=== PATIENT | male | born 1955 | race Caucasian/White ===

== ENCOUNTER 2021-03-03 11:44 | Observation (INO) ==
[2021-03-03] MEDS ORDERED: Naloxone 0.4 MG/ML INJ IVP PRN (17:46)
[2021-03-03] MEDS ORDERED: 0.9 % Sodium Chloride 1,000 ML IVC SCH (18:00)
[2021-03-03] MEDS: *HR* HYDROcodone/Acet 5/325 mg TABLET PO PRN (21:56)
[2021-03-03] MEDS ORDERED: Acetaminophen 325 MG TABLET PO PRN (22:22)
[2021-03-04 02:50] LABS: Basophils # 0.1 K/mcL (0.0-0.2); Basophils % 0.4 %; Eosinophils % 0.3 %; Hematocrit 27.4 % (37.5-50.1); Immature Granulocytes % 0.3 % (0-4); Lymphocytes # 2.2 K/mcL (0.6-4.6); Lymphocytes % 19.4 %; Mean Corpuscular HGB Conc 29.2 g/dL (31.6-35.5); Mean Corpuscular Hemoglobin 25.3 pg (28.0-33.3); Mean Corpuscular Volume 86.7 fL (83.0-100.0); Mean Platelet Volume 10.4 fL (9.4-12.4); Monocytes % 8.9 %; Neutrophils # 8.1 K/mcL (1.6-8.9); Nucleated Red Blood Cells 0.2 /100 WBC (0); Platelet Count 637 K/mcL (140-400); Red Blood Count 3.16 M/mcL (4.19-5.50); Red Cell Distribution Width 16.8 % (11.5-14.5); Segmented Neutrophils % 70.7 %; White Blood Count 11.5 K/mcL (4.3-11.1)
[2021-03-04 03:05] LABS: Calcium 8.3 mg/dL (8.6-10.3); Potassium 4.2 mEq/L (3.5-5.1)
[2021-03-04] MEDS: *HR* HYDROcodone/Acet 5/325 mg TABLET PO PRN ×2 (05:32→12:00)
[2021-03-04] MEDS ORDERED: *HR* Heparin 5,000 UNIT/ML VIAL SQ SCH (06:00)
[2021-03-04] MEDS ORDERED: Isovue-300 50ML VIAL ONE (12:49)
[2021-03-04] MEDS ORDERED: Lidocaine -MPF 2% 5 ML VIAL ONE (12:52)
[2021-03-04] MEDS ORDERED: *HR* Midazolam HCl 2 MG/2 ML VIAL ONE (12:52)
[2021-03-04] MEDS ORDERED: *HR* Propofol 200 MG/20 ML VIAL IVP ONE (12:52)
[2021-03-04] MEDS ORDERED: Ondansetron 4 MG/2 ML VIAL ONE (12:52)
[2021-03-04] MEDS ORDERED: *HR* FentaNYL (PF) 100 MCG/2 ML VIAL ONE (12:52)
[2021-03-04] MEDS ORDERED: *HR* HYDROcodone/Acet 5/325 mg TABLET PO PRN (15:12)
[2021-03-04] MEDS ORDERED: Naloxone 0.4 MG/ML INJ IVP PRN (15:12)
[2021-03-04] MEDS ORDERED: Acetaminophen 325 MG TABLET PO PRN (15:12)
[2021-03-04] MEDS: *HR* Heparin 5,000 UNIT/ML VIAL SQ SCH (16:49)
[2021-03-05 02:41] LABS: Basophils % 0.1 %; Hematocrit 27.9 % (37.5-50.1); Hemoglobin 8.2 g/dL (12.9-16.9); Immature Granulocytes % 0.3 % (0-4); Lymphocytes % 14.9 %; Mean Corpuscular HGB Conc 29.4 g/dL (31.6-35.5); Mean Corpuscular Hemoglobin 25.4 pg (28.0-33.3); Mean Corpuscular Volume 86.4 fL (83.0-100.0); Mean Platelet Volume 11.2 fL (9.4-12.4); Monocytes # 0.4 K/mcL (0.0-1.3); Neutrophils # 5.5 K/mcL (1.6-8.9); Platelet Count 617 K/mcL (140-400); Red Blood Count 3.23 M/mcL (4.19-5.50); Red Cell Distribution Width 17.2 % (11.5-14.5); Segmented Neutrophils % 78.7 %
[2021-03-05 02:56] LABS: Calcium 8.6 mg/dL (8.6-10.3); Potassium 4.4 mEq/L (3.5-5.1)
[2021-03-05 03:13] VITALS: O2SAT 98
[2021-03-05] MEDS: *HR* Heparin 5,000 UNIT/ML VIAL SQ SCH (05:04)
[2021-03-05 07:42] VITALS: BP 161/72; TEMP 97.8
[2021-03-05 08:01] VITALS: PULSE 64
[2021-03-07 23:08] LABS: Calculi Mass 42 mg
== END 2021-03-05 13:40 | disposition home or self-care (01) ==
LOC: 3BNU
PROVIDERS: ADMIT Internal Medicine; ATTEND Internal Medicine

== ENCOUNTER 2021-07-09 02:26 | Observation (INO) ==
[2021-07-09] MEDS ORDERED: Naloxone 0.4 MG/ML INJ IVP PRN (04:28)
[2021-07-09] MEDS ORDERED: Acetaminophen 325 MG TABLET PO PRN (04:28)
[2021-07-09] MEDS ORDERED: Ondansetron 4 MG/2 ML VIAL IVP PRN (04:28)
[2021-07-09] MEDS: 0.9 % Sodium Chloride 1,000 ML IVC SCH ×2 (05:04→15:14)
[2021-07-09 05:56] LABS: Bilirubin,Urine Negative (Negative); Blood,Urine Negative (Negative); Clarity,Urine Clear (Clear); Color,Urine Light-Yellow (Yellow); Glucose,Urine (UA) Normal (Normal); Ketones,Urine Negative (Negative); Leukocyte Esterase,Urine Negative (Negative); Nitrite,Urine Negative (Negative); PH,Urine 6.5 pH Units (5.0-8.0); Protein,Urine 30 mg/dL (Neg-Trace); RBC,Urine 0-3 per hpf (0-3); Specific Gravity,Urine 1.027 (1.010-1.025); Urobilinogen,Urine Normal (Normal); WBC,Urine 0-3 per hpf (0-3)
[2021-07-09 07:05] LABS: Basophils # 0.1 K/mcL (0.0-0.2); Basophils % 0.5 %; Eosinophils # 0.1 K/mcL (0.0-0.6); Eosinophils % 0.5 %; Hematocrit 28.5 % (37.5-50.1); Hemoglobin 8.3 g/dL (12.9-16.9); Immature Granulocytes % 0.3 % (0-4); Lymphocytes # 2.8 K/mcL (0.6-4.6); Lymphocytes % 19.2 %; Mean Corpuscular HGB Conc 29.1 g/dL (31.6-35.5); Mean Corpuscular Hemoglobin 24.1 pg (28.0-33.3); Mean Corpuscular Volume 82.8 fL (83.0-100.0); Monocytes # 1.2 K/mcL (0.0-1.3); Monocytes % 8.4 %; Neutrophils # 10.5 K/mcL (1.6-8.9); Platelet Count 371 K/mcL (140-400); Red Blood Count 3.44 M/mcL (4.19-5.50); Red Cell Distribution Width 16.6 % (11.5-14.5); Segmented Neutrophils % 71.1 %; White Blood Count 14.8 K/mcL (4.3-11.1)
[2021-07-09 07:09] LABS: INR 1.2; Prothrombin Time 13.8 Seconds (9.4-12.1)
[2021-07-09 07:58] LABS: Alanine Aminotransferase 26 Units/L (7-52); Albumin 4.1 g/dL (3.5-5.7); Albumin/Globulin Ratio 1.1 (1.1-2.2); Alkaline Phosphatase 80 Units/L (34-104); Aspartate Amino Transferase 26 Units/L (13-39); BUN/Creatinine Ratio 12 (6-26); Bilirubin,Indirect 0.3 mg/dL (0.0-1.0); Bilirubin,Total 0.3 mg/dL (0.3-1.0); Blood Urea Nitrogen 33 mg/dL (8-23); Calcium 9.3 mg/dL (8.6-10.3); Carbon Dioxide 16 mEq/L (23-29); Chloride 110 mEq/L (98-107); Ferritin 18 ng/mL (20-250); Globulin 3.8 g/dL (2.4-3.5); Glucose 94 mg/dL (70-105); Iron < 10 mcg/dL (65-175); Magnesium 1.9 mg/dL (1.6-2.6); Osmolality,Calculated 291 (280-300); Potassium 4.2 mEq/L (3.5-5.1); Sodium 137 mEq/L (136-145); Thyroid Stimulating Hormone 2.416 mcIU/mL (0.340-5.600); Total Protein 7.9 g/dL (6.4-8.9); Transferrin 379 mg/dL (203-362); eGFR For African Americans 27 (> 60); eGFR For Non-African Americans 22 (> 60)
[2021-07-09] MEDS ORDERED: amLODIPine 5 MG TABLET PO SCH (10:45)
[2021-07-09] MEDS: Cyanocobalamin (B-12) 1,000 MCG TABLET PO SCH (20:02)
[2021-07-09] MEDS: *HR* OxyCODONE Immed Rel 5 MG TABLET PO PRN (21:45)
[2021-07-10] MEDS ORDERED: *HR* Metoprolol 5 MG/5 ML VIAL IVP ONE (00:22)
[2021-07-10 01:36] LABS: Basophils % 0.2 %; Eosinophils % 0.1 %; Hematocrit 24.5 % (37.5-50.1); Hemoglobin 7.1 g/dL (12.9-16.9); Immature Granulocytes % 0.3 % (0-4); Lymphocytes # 1.1 K/mcL (0.6-4.6); Lymphocytes % 7.8 %; Mean Corpuscular Hemoglobin 23.6 pg (28.0-33.3); Mean Corpuscular Volume 81.4 fL (83.0-100.0); Mean Platelet Volume 10.5 fL (9.4-12.4); Monocytes # 0.9 K/mcL (0.0-1.3); Monocytes % 6.1 %; Neutrophils # 12.3 K/mcL (1.6-8.9); Platelet Count 424 K/mcL (140-400); Red Blood Count 3.01 M/mcL (4.19-5.50); Red Cell Distribution Width 16.8 % (11.5-14.5); Segmented Neutrophils % 85.5 %; White Blood Count 14.4 K/mcL (4.3-11.1)
[2021-07-10 02:04] LABS: Calcium 8.5 mg/dL (8.6-10.3); Potassium 4.3 mEq/L (3.5-5.1)
[2021-07-10] MEDS: amLODIPine 5 MG TABLET PO SCH (09:26)
[2021-07-10] MEDS: Cyanocobalamin (B-12) 1,000 MCG TABLET PO SCH ×2 (09:26→20:46)
[2021-07-10] MEDS: *HR* OxyCODONE Immed Rel 5 MG TABLET PO PRN (10:00)
[2021-07-10] MEDS ORDERED: Iron Sucrose Complex 400 MG in 0.9 % Sodium Chloride 250 ML IVPB ONE (11:35)
[2021-07-10 17:55] LABS: Hematocrit 24.3 % (37.5-50.1); Hemoglobin 7.1 g/dL (12.9-16.9)
[2021-07-11] MEDS: *HR* OxyCODONE Immed Rel 5 MG TABLET PO PRN (03:43)
[2021-07-11 07:02] VITALS: BP 142/76; PULSE 91; TEMP 99; O2SAT 95
[2021-07-11 08:31] LABS: Basophils % 0.2 %; Eosinophils # 0.1 K/mcL (0.0-0.6); Eosinophils % 0.6 %; Hematocrit 26.5 % (37.5-50.1); Hemoglobin 7.7 g/dL (12.9-16.9); Immature Granulocytes % 0.6 % (0-4); Lymphocytes # 1.6 K/mcL (0.6-4.6); Lymphocytes % 11.3 %; Mean Corpuscular HGB Conc 29.1 g/dL (31.6-35.5); Mean Corpuscular Hemoglobin 23.8 pg (28.0-33.3); Mean Corpuscular Volume 81.8 fL (83.0-100.0); Mean Platelet Volume 10.5 fL (9.4-12.4); Monocytes % 7.1 %; Neutrophils # 11.1 K/mcL (1.6-8.9); Nucleated Red Blood Cells 0.1 /100 WBC (0); Platelet Count 434 K/mcL (140-400); Red Blood Count 3.24 M/mcL (4.19-5.50); Red Cell Distribution Width 16.9 % (11.5-14.5); Segmented Neutrophils % 80.2 %; White Blood Count 13.9 K/mcL (4.3-11.1)
[2021-07-11 08:49] LABS: Magnesium 1.7 mg/dL (1.6-2.6); Potassium 4.2 mEq/L (3.5-5.1)
[2021-07-11] MEDS: Cyanocobalamin (B-12) 1,000 MCG TABLET PO SCH (09:17)
[2021-07-11] MEDS: amLODIPine 5 MG TABLET PO SCH (09:18)
== END 2021-07-11 13:30 | disposition home or self-care (01) ==
LOC: 2ANU → SUATTDRO 04:16 → 2ANU 07-11 08:39
PROVIDERS: ADMIT Internal Medicine; ATTEND Family Medicine

== ENCOUNTER 2021-07-18 10:09 | Observation (INO) ==
[2021-07-18] MEDS ORDERED: 0.9 % Sodium Chloride 1,000 ML IVC ONE (13:57)
[2021-07-18 14:41] LABS: Bilirubin,Urine Negative (Negative); Blood,Urine Negative (Negative); Clarity,Urine Clear (Clear); Color,Urine Light-Yellow (Yellow); Glucose,Urine (UA) Normal (Normal); Ketones,Urine Negative (Negative); Leukocyte Esterase,Urine Negative (Negative); Nitrite,Urine Negative (Negative); PH,Urine 6.5 pH Units (5.0-8.0); Protein,Urine 30 mg/dL (Neg-Trace); RBC,Urine 0-3 per hpf (0-3); Specific Gravity,Urine 1.022 (1.010-1.025); Squamous Epithelial Cell,Urine Few per hpf (None-Few); Urobilinogen,Urine Normal (Normal); WBC,Urine 0-3 per hpf (0-3)
[2021-07-18 14:42] LABS: Hematocrit 26.7 % (37.5-50.1); Hemoglobin 7.8 g/dL (12.9-16.9); Mean Corpuscular HGB Conc 29.2 g/dL (31.6-35.5); Mean Corpuscular Hemoglobin 23.9 pg (28.0-33.3); Mean Corpuscular Volume 81.9 fL (83.0-100.0); Mean Platelet Volume 10.7 fL (9.4-12.4); Nucleated Red Blood Cells 0.2 /100 WBC (0); Platelet Count 1222 K/mcL (140-400); Red Blood Count 3.26 M/mcL (4.19-5.50); Red Cell Distribution Width 17.9 % (11.5-14.5); White Blood Count 12.3 K/mcL (4.3-11.1)
[2021-07-18 15:04] LABS: Alanine Aminotransferase 28 Units/L (7-52); Albumin 3.9 g/dL (3.5-5.7); Alkaline Phosphatase 151 Units/L (34-104); Aspartate Amino Transferase 21 Units/L (13-39); BUN/Creatinine Ratio 16 (6-26); Bilirubin,Indirect 0.2 mg/dL (0.0-1.0); Bilirubin,Total 0.2 mg/dL (0.3-1.0); Blood Urea Nitrogen 44 mg/dL (8-23); Calcium 9.3 mg/dL (8.6-10.3); Carbon Dioxide 18 mEq/L (23-29); Chloride 113 mEq/L (98-107); Globulin 4.1 g/dL (2.4-3.5); Glucose 105 mg/dL (70-105); Magnesium 2.3 mg/dL (1.6-2.6); Osmolality,Calculated 310 (280-300); Potassium 4.6 mEq/L (3.5-5.1); Sodium 144 mEq/L (136-145); eGFR For African Americans 29 (> 60); eGFR For Non-African Americans 24 (> 60)
[2021-07-18 15:24] LABS: Monocytes # 0.7 K/mcL (0.0-1.3); Neutrophils # 10.6 K/mcL (1.6-8.9); Platelet Estimate Marked Increase (Normal)
[2021-07-18 15:25] LABS: Acanthocytes 1+ (Not Present); Anisocytosis 1+ (Not Present); Polychromasia 1+ (Not Present); Target Cells 1+ (Not Present)
[2021-07-18] MEDS ORDERED: Naloxone 0.4 MG/ML INJ IVP PRN (17:35)
[2021-07-18] MEDS ORDERED: Ondansetron 4 MG/2 ML VIAL IVP PRN (17:35)
[2021-07-18] MEDS ORDERED: Melatonin 3 MG TABLET PO PRN (17:35)
[2021-07-18 20:07] LABS: Ferritin 260 ng/mL (20-250); Iron < 10 mcg/dL (65-175); Transferrin 265 mg/dL (203-362)
[2021-07-18] MEDS: Cyanocobalamin (B-12) 1,000 MCG TABLET PO SCH (21:22)
[2021-07-18] MEDS: 0.9 % Sodium Chloride 1,000 ML IVC SCH (21:34)
[2021-07-19] MEDS: Acetaminophen 325 MG TABLET PO PRN ×2 (01:39→12:28)
[2021-07-19 02:01] LABS: Protein/Creatinine Ratio,Urine 0.53 mg/mg (0.00-0.20); Sodium, Urine 135.7 mEq/L
[2021-07-19] MEDS: 0.9 % Sodium Chloride 1,000 ML IVC SCH (05:57)
[2021-07-19 06:36] LABS: Basophils % 0.3 %; Eosinophils # 0.2 K/mcL (0.0-0.6); Eosinophils % 1.4 %; Hematocrit 22.9 % (37.5-50.1); Hemoglobin 6.7 g/dL (12.9-16.9); Immature Granulocytes % 0.3 % (0-4); Lymphocytes # 1.9 K/mcL (0.6-4.6); Lymphocytes % 16.3 %; Mean Corpuscular HGB Conc 29.3 g/dL (31.6-35.5); Mean Corpuscular Hemoglobin 23.7 pg (28.0-33.3); Mean Corpuscular Volume 80.9 fL (83.0-100.0); Mean Platelet Volume 10.5 fL (9.4-12.4); Monocytes % 8.8 %; Neutrophils # 8.4 K/mcL (1.6-8.9); Nucleated Red Blood Cells 0.3 /100 WBC (0); Platelet Count 1188 K/mcL (140-400); Red Blood Count 2.83 M/mcL (4.19-5.50); Segmented Neutrophils % 72.9 %; White Blood Count 11.5 K/mcL (4.3-11.1)
[2021-07-19 06:57] LABS: Calcium 8.9 mg/dL (8.6-10.3); Phosphorous 3.3 mg/dL (2.7-4.5); Potassium 4.8 mEq/L (3.5-5.1)
[2021-07-19] MEDS ORDERED: 0.9 % Sodium Chloride 250 ML IVC SCH (07:45)
[2021-07-19] MEDS: Cyanocobalamin (B-12) 1,000 MCG TABLET PO SCH ×2 (08:25→21:17)
[2021-07-19] MEDS: amLODIPine 5 MG TABLET PO SCH (08:25)
[2021-07-19] MEDS ORDERED: Iron Sucrose Complex 200 MG in 0.9 % Sodium Chloride 100 ML IVPB ONE (13:12)
[2021-07-19 18:23] LABS: Basophils % 0.4 %; Eosinophils # 0.2 K/mcL (0.0-0.6); Eosinophils % 1.4 %; Hematocrit 26.1 % (37.5-50.1); Hemoglobin 7.9 g/dL (12.9-16.9); Immature Granulocytes % 0.5 % (0-4); Lymphocytes # 1.7 K/mcL (0.6-4.6); Lymphocytes % 15.7 %; Mean Corpuscular HGB Conc 30.3 g/dL (31.6-35.5); Mean Corpuscular Volume 82.6 fL (83.0-100.0); Mean Platelet Volume 10.7 fL (9.4-12.4); Monocytes # 0.7 K/mcL (0.0-1.3); Monocytes % 6.5 %; Neutrophils # 8.4 K/mcL (1.6-8.9); Platelet Count 1021 K/mcL (140-400); Red Blood Count 3.16 M/mcL (4.19-5.50); Red Cell Distribution Width 17.6 % (11.5-14.5); Segmented Neutrophils % 75.5 %; White Blood Count 11.1 K/mcL (4.3-11.1)
[2021-07-20 01:01] LABS: Basophils % 0.3 %; Eosinophils # 0.2 K/mcL (0.0-0.6); Eosinophils % 1.3 %; Hematocrit 24.8 % (37.5-50.1); Hemoglobin 7.6 g/dL (12.9-16.9); Immature Granulocytes % 0.5 % (0-4); Lymphocytes # 1.7 K/mcL (0.6-4.6); Lymphocytes % 14.2 %; Mean Corpuscular HGB Conc 30.6 g/dL (31.6-35.5); Mean Corpuscular Hemoglobin 24.9 pg (28.0-33.3); Mean Corpuscular Volume 81.3 fL (83.0-100.0); Mean Platelet Volume 10.1 fL (9.4-12.4); Monocytes # 0.9 K/mcL (0.0-1.3); Monocytes % 7.2 %; Nucleated Red Blood Cells 0.2 /100 WBC (0); Platelet Count 1091 K/mcL (140-400); Red Blood Count 3.05 M/mcL (4.19-5.50); Red Cell Distribution Width 17.5 % (11.5-14.5); Segmented Neutrophils % 76.5 %; White Blood Count 11.8 K/mcL (4.3-11.1)
[2021-07-20 01:19] LABS: Calcium 8.4 mg/dL (8.6-10.3)
[2021-07-20] MEDS: amLODIPine 5 MG TABLET PO SCH (08:10)
[2021-07-20] MEDS: Cyanocobalamin (B-12) 1,000 MCG TABLET PO SCH ×2 (08:10→20:37)
[2021-07-20] MEDS: Acetaminophen 325 MG TABLET PO PRN ×2 (08:10→20:36)
[2021-07-21 02:00] LABS: Basophils # 0.1 K/mcL (0.0-0.2); Basophils % 0.4 %; Eosinophils # 0.3 K/mcL (0.0-0.6); Eosinophils % 2.3 %; Hemoglobin 7.7 g/dL (12.9-16.9); Immature Granulocytes % 0.9 % (0-4); Lymphocytes # 1.8 K/mcL (0.6-4.6); Lymphocytes % 15.1 %; Mean Corpuscular HGB Conc 29.6 g/dL (31.6-35.5); Mean Corpuscular Hemoglobin 24.2 pg (28.0-33.3); Mean Corpuscular Volume 81.8 fL (83.0-100.0); Mean Platelet Volume 10.1 fL (9.4-12.4); Monocytes % 8.2 %; Neutrophils # 8.8 K/mcL (1.6-8.9); Nucleated Red Blood Cells 0.2 /100 WBC (0); Platelet Count 1108 K/mcL (140-400); Red Blood Count 3.18 M/mcL (4.19-5.50); Red Cell Distribution Width 17.7 % (11.5-14.5); Segmented Neutrophils % 73.1 %
[2021-07-21 02:19] LABS: Calcium 8.9 mg/dL (8.6-10.3); Potassium 4.6 mEq/L (3.5-5.1)
[2021-07-21 02:43] LABS: Burr Cells 1+ (Not Present); Hypersegmented Neutrophils Present (Not Present); Hypochromasia Present (Not Present); Platelet Estimate Marked Increase (Normal); Target Cells 1+ (Not Present)
[2021-07-21] MEDS: amLODIPine 5 MG TABLET PO SCH (09:07)
[2021-07-21] MEDS: Cyanocobalamin (B-12) 1,000 MCG TABLET PO SCH ×2 (09:07→22:07)
[2021-07-21] MEDS ORDERED: 0.9 % Sodium Chloride 500 ML ONE (11:50)
[2021-07-21] MEDS ORDERED: *HR* FentaNYL (PF) 100 MCG/2 ML VIAL IVP ONE (11:53)
[2021-07-21] MEDS ORDERED: *HR* Midazolam HCl 2 MG/2 ML VIAL IVP ONE (11:53)
[2021-07-21] MEDS: Acetaminophen 325 MG TABLET PO PRN (16:39)
[2021-07-21 16:56] LABS: Adenovirus F 40/41 PCR Not detected (Not detect); Astrovirus PCR Not detected (Not detect); C.difficile Toxin A/B Gene PCR Not detected (Not detect); Campylobacter by PCR Not detected (Not detect); Cryptosporidium by PCR Not detected (Not detect); Cyclospora cayetanensis PCR Not detected (Not detect); Entamoeba histolytica PCR Not detected (Not detect); Enteroaggregative E.coli(EAEC) Not detected (Not detect); Enteropathogenic E.coli(EPEC) Not detected (Not detect); Enterotoxigenic E.coli (ETEC) Not detected (Not detect); Giardia lamblia PCR Not detected (Not detect); Norovirus GI/GII PCR DETECTED (Not detect); Plesiomonas shigelloides PCR Not detected (Not detect); Rotavirus A PCR Not detected (Not detect); Salmonella PCR Not detected (Not detect); Sapovirus PCR Not detected (Not detect); Shig/EnteroinvasiveE coli EIEC Not detected (Not detect); Shigalike tox-prod E coli STEC Not detected (Not detect); Vibrio PCR Not detected (Not detect); Vibrio cholerae PCR Not detected (Not detect); Yersinia enterocolitica PCR Not detected (Not detect)
[2021-07-21] MEDS ORDERED: SODIUM CHLORIDE/NAHCO3/KCL/PEG 4,000 ML SOLN.RECON PO ONE (17:00)
[2021-07-22 07:01] LABS: Basophils # 0.1 K/mcL (0.0-0.2); Basophils % 0.5 %; Eosinophils # 0.3 K/mcL (0.0-0.6); Eosinophils % 2.5 %; Hematocrit 27.7 % (37.5-50.1); Hemoglobin 8.3 g/dL (12.9-16.9); Immature Granulocytes % 0.9 % (0-4); Lymphocytes # 1.7 K/mcL (0.6-4.6); Lymphocytes % 16.7 %; Mean Corpuscular Hemoglobin 24.9 pg (28.0-33.3); Mean Corpuscular Volume 83.2 fL (83.0-100.0); Mean Platelet Volume 9.9 fL (9.4-12.4); Monocytes # 1.1 K/mcL (0.0-1.3); Monocytes % 10.5 %; Neutrophils # 7.1 K/mcL (1.6-8.9); Nucleated Red Blood Cells 0.2 /100 WBC (0); Platelet Count 1165 K/mcL (140-400); Red Blood Count 3.33 M/mcL (4.19-5.50); Red Cell Distribution Width 18.5 % (11.5-14.5); Segmented Neutrophils % 68.9 %; White Blood Count 10.3 K/mcL (4.3-11.1)
[2021-07-22 07:22] LABS: Calcium 9.2 mg/dL (8.6-10.3); Potassium 4.5 mEq/L (3.5-5.1)
[2021-07-22] MEDS: amLODIPine 5 MG TABLET PO SCH (07:34)
[2021-07-22] MEDS: Cyanocobalamin (B-12) 1,000 MCG TABLET PO SCH ×2 (07:34→20:42)
[2021-07-23 07:31] LABS: Calcium 9.7 mg/dL (8.6-10.3); Potassium 4.7 mEq/L (3.5-5.1)
[2021-07-23] MEDS ORDERED: 0.9 % Sodium Chloride 1,000 ML IVC SCH (08:45)
[2021-07-23] MEDS: Acetaminophen 325 MG TABLET PO PRN (08:52)
[2021-07-23] MEDS: amLODIPine 5 MG TABLET PO SCH (08:52)
[2021-07-23] MEDS: Cyanocobalamin (B-12) 1,000 MCG TABLET PO SCH (08:53)
[2021-07-23 09:27] LABS: Basophils # 0.1 K/mcL (0.0-0.2); Basophils % 0.4 %; Eosinophils # 0.2 K/mcL (0.0-0.6); Eosinophils % 1.3 %; Hematocrit 27.1 % (37.5-50.1); Hemoglobin 8.1 g/dL (12.9-16.9); Immature Granulocytes % 0.6 % (0-4); Lymphocytes % 13.7 %; Mean Corpuscular HGB Conc 29.9 g/dL (31.6-35.5); Mean Corpuscular Hemoglobin 24.8 pg (28.0-33.3); Mean Corpuscular Volume 82.9 fL (83.0-100.0); Mean Platelet Volume 9.8 fL (9.4-12.4); Monocytes # 1.3 K/mcL (0.0-1.3); Neutrophils # 10.9 K/mcL (1.6-8.9); Nucleated Red Blood Cells 0.3 /100 WBC (0); Platelet Count 1075 K/mcL (140-400); Red Blood Count 3.27 M/mcL (4.19-5.50); Red Cell Distribution Width 18.3 % (11.5-14.5); White Blood Count 14.5 K/mcL (4.3-11.1)
[2021-07-23 10:06] LABS: Hypochromasia Present (Not Present)
[2021-07-23 10:07] LABS: Anisocytosis 1+ (Not Present); Platelet Estimate Marked Increase (Normal)
[2021-07-23 13:48] LABS: JAK2 (V617F) SOURCE NOT SPECIFIED
[2021-07-23] MEDS ORDERED: Lidocaine -MPF 2% 2 ML VIAL ONE (13:48)
[2021-07-23] MEDS ORDERED: *HR* Propofol 200 MG/20 ML VIAL IVP ONE (13:58)
[2021-07-23 14:35] VITALS: BP 151/84; PULSE 71; TEMP 98.6; O2SAT 95
[2021-07-24 15:00] LABS: JAK2 (V617F) Mutation by PCR NOT DETECTED
[2021-07-25 04:05] LABS: BCR-ABL1 Specimen Source NOT SPECIFIED
== END 2021-07-23 18:45 | disposition home or self-care (01) ==
LOC: EMEROOARM 10:09 → 3BNU 10:09 → SUATTDRO 18:31 → 3BNU 20:09
PROVIDERS: ADMIT Internal Medicine; ATTEND Family Medicine
PROC: ENDOEDS (2021-07-23 15:30)